=== PATIENT | female | born 1970 | race Caucasian/White ===

== ENCOUNTER 2021-11-30 06:51 | Outpatient (CLI) | payer OTHER ==
[~2021-11-30 06:51] MED LIST: LANS30EC3 PO
[2021-12-01 15:07] LABS: HEPATITIS B SURFACE ANTIGEN Negative (Negative); HEPATITIS C VIRUS ANTIBODY <0.1 s/co ratio (0.0-0.9)
[2021-12-02 11:20] LABS: HEPATITIS A ANTIBODY IGM NEGATIVE (NEGATIVE)
[2021-12-02 11:23] LABS: HEPATITIS B CORE AB TOTAL POSITIVE (NEGATIVE); HEPATITIS B SURFACE ANTIBODY REACTIVE (NONREACTIVE); HEPATITIS B SURFACE ANTIGEN NEGATIVE (NEGATIVE)
== END 2021-11-30 20:14 | disposition home or self-care (01) ==
LOC: MLB 06:51
PROVIDERS: ATTEND Emergency Medicine
DX: Z02.1 Encounter for pre-employment examination (principal)
CPT/HCPCS: 36415; 86702; 86704; 86706; 86708; 86709; 86803; 87340